=== PATIENT | female | born 1995 | race African-American/Black ===

== ENCOUNTER 2019-09-20 08:40 | Emergency (ER) | payer OTHER ==
[~2019-09-20] VITALS: Ht 162.6 cm; Wt 95.3 kg
[~2019-09-20 08:40] MED LIST: FLONASE 0.05%50 MCG NASAL; LOMOTIL TABLET1 EACH PO; MACROBID 100 M100 M1 PO; ZYRTEC10 MG PO
[2019-09-20] MEDS ORDERED: CLINDAMYCI75 MG/5 ML PO (09:21)
[2019-09-20] MEDS ORDERED: CLEOCIN HCL150 MG PO (09:21)
[2019-09-20 09:44] LABS: ABSOLUTE NEUTROPHILS 2.7 thou/uL (1.4-8.2); BASOPHILS 0.8 % (0.0-2.0); EOSINOPHILS 1.5 % (0.0-3.0); HEMATOCRIT 41.2 % (37.0-47.0); HEMOGLOBIN 13.4 gm/dL (12.0-15.0); LYMPHOCYTES 29.5 % (24.0-44.0); MCH 27.9 pg (26.0-34.0); MCHC 32.5 g/dL (28.0-37.0); MCV 85.8 fL (80.0-100.0); MONOCYTES 8.6 % (1.0-8.0); PLATELET COUNT 383 thou/uL (150-400); POLYS 59.6 % (36.0-66.0); RDW 14.4 % (10.5-14.5); WBC 4.6 thou/uL (4.0-11.0)
[2019-09-20 09:57] LABS: CALCIUM 8.9 mg/dL (8.5-10.1); CREATININE 0.9 mg/dL (0.6-1.0); POTASSIUM 3.9 mmol/L (3.5-5.1)
[2019-09-20 12:48] VITALS: BP 114/63
== END 2019-09-20 12:59 | disposition home or self-care (01) ==
LOC: ER 08:40
PROVIDERS: Emergency Medicine
DX: K04.7 Periapical abscess without sinus (principal); R11.2 Nausea with vomiting, unspecified; R22.9 Localized swelling, mass and lump, unspecified; J45.909 Unspecified asthma, uncomplicated; Z88.1 Allergy status to other antibiotic agents

== ENCOUNTER 2021-01-22 10:40 | Emergency (ER) | payer OTHER ==
[~2021-01-22] VITALS: Ht 162.6 cm; Wt 86.2 kg
[~2021-01-22 10:40] MED LIST changes: +CLEOCIN HCL150 MG PO; +CLINDAMYCI75 MG/5 ML PO
[2021-01-22 10:52] VITALS: BP 114/59
[2021-01-22] MEDS ORDERED: DIFLUCAN150 MG PO (10:57)
[2021-01-22] MEDS ORDERED: TRAMADOL 50 MG50 MG PO (10:58)
[2021-01-22] MEDS ORDERED: NYSTATIN100000 UNI SW&SWALLOW (11:32)
[2021-01-22] MEDS ORDERED: DIFLUCAN200 MG PO (11:32)
== END 2021-01-22 11:34 | disposition home or self-care (01) ==
LOC: ER 10:40
DX: B37.9 Candidiasis, unspecified (principal); J45.909 Unspecified asthma, uncomplicated; Z88.1 Allergy status to other antibiotic agents